=== PATIENT | male | born 1960 ===

== ENCOUNTER 2019-09-19 12:08 | Emergency (ER) | payer SELFPAY ==
[~2019-09-19] VITALS: Ht 170.2 cm; Wt 68.0 kg
[2019-09-19 12:52] VITALS: BP 139/74
--- NOTE | 2019-09-19 12:53 | Emergency Room Report ---
History of Present Illness General Chief Complaint: Pain Source: EMS Present Illness HPI 59-year-old male presents to the emergency department complaining of 10 out of 10 severity pain, swelling, erythema and intermittent clear fluid leaking from the right lower extremity x1 year. Patient reports multiple work-ups and states "nobody knows what really going on they gives me different answers ". Patient states he has been diagnosed with lymphedema, cellulitis, and DVT. Patient states that he began having clear fluid again which is concerning to him and he wants "a real diagnosis." Allergies: Coded Allergies: No Known Allergies (Unverified , 09/19/19) Patient History Past Medical History: see triage record Past Surgical History: none Pertinent Family History: none Reviewed Nursing Documentation: PMH: Agreed; PSxH: Agreed Nursing Documentation-PMH Past Medical History: No History, Except For Hx Hypertension: Yes History Of Psychiatric Problem: Yes Review of Systems All Other Systems: negative except mentioned in HPI Physical Exam Vital Signs Date Time Temp Pulse Resp B/P (MAP) Pulse Ox O2 Delivery O2 Flow Rate FiO2 09/19/19 12:06 97.9 104 18 139/74 (95) 97 Room Air Medical Decision Making PA Attestation Dr. Green Is my supervising Physician whom patient management has been discussed with. Diagnostic Impression: Primary Impression: Eloped from emergency department Last Vital Signs Date Time Temp Pulse Resp B/P (MAP) Pulse Ox O2 Delivery O2 Flow Rate FiO2 09/19/19 12:06 97.9 104 18 139/74 (95) 97 Room Air Disposition: ELOPED Condition: Unknown Jill Chew Sep 19, 2019 12:53
--- NOTE | 2019-09-19 12:55 | NUR ---
ELOPEMENT: pt. received pain meds then he said he is out of here and left ER with steady gait and all personal belongings
== END 2019-09-19 14:00 | disposition left against medical advice (07) ==
LOC: EDBD 12:08 → EMR 14:00
DX: R22.41 Localized swelling, mass and lump, right lower limb (principal); I10 Essential (primary) hypertension
CPT/HCPCS: 99282